=== PATIENT | female | born 1960 | race Caucasian/White ===

== ENCOUNTER 2024-08-04 11:43 | Emergency (ER) | payer BC, OTHER ==
[~2024-08-04] VITALS: Ht 162.6 cm; Wt 70.8 kg
[~2024-08-04 11:43] MED LIST: ASPIRIN CHEW81 MG PO; LISINOPRIL-HCT1 EACH PO; ZOLPIDEM TARTRA10 MG PO
[2024-08-04 12:08] VITALS: PULSE 78; RESP 17; TEMP 98.5; O2SAT 99
== END 2024-08-04 13:01 | disposition home or self-care (01) ==
LOC: ER 12:27
DX: S20.02XA Contusion of left breast, initial encounter (principal); N60.02 Solitary cyst of left breast; W01.198A Fall on same level from slipping, tripping and stumbling with subsequent striking against other object, initial encounter; Y93.01 Activity, walking, marching and hiking; Y92.89 Other specified places as the place of occurrence of the external cause
CPT/HCPCS: 99282